=== PATIENT | male | born 1960 | race Caucasian/White ===

== ENCOUNTER → 2016-12-08 | Outpatient (CLI) | payer OTHER ==
[~2016-12-08] MED LIST: ASPIR 8181 MG PO; D-AMPHETAMINE SALT PO; EFFEXOR75 MG PO; FLEXERIL10 MG PO; NITROFURANTOIN100 MG PO; PERCOCET 5/31 TABLET PO; RELAFEN750 MG PO
== END | disposition home or self-care (01) ==
LOC: CDC 10:08
DX: Z01.810 Encounter for preprocedural cardiovascular examination (principal); K40.90 Unilateral inguinal hernia, without obstruction or gangrene, not specified as recurrent
CPT/HCPCS: 93000

== ENCOUNTER 2016-12-13 05:26 | Day surgery (SDC) | payer OTHER ==
[~2016-12-13] VITALS: Ht 175.3 cm; Wt 81.6 kg
[~2016-12-13 05:26] MED LIST changes: -PERCOCET 5/31 TABLET PO
[2016-12-13] MEDS ORDERED: PERCOCET 5/31 TABLET PO (08:29)
[2016-12-13 09:27] VITALS: BP 131/88
[2016-12-13 10:27] VITALS: BP 127/87
== END 2016-12-13 10:32 | disposition home or self-care (01) ==
LOC: SDC
PROC: 0YU60JZ Supplement Left Inguinal Region with Synthetic Substitute, Open Approach (ICD-10-PCS; principal; 2016-12-13)
DX: K40.90 Unilateral inguinal hernia, without obstruction or gangrene, not specified as recurrent (principal); G47.33 Obstructive sleep apnea (adult) (pediatric); Z88.0 Allergy status to penicillin; Z88.8 Allergy status to other drugs, medicaments and biological substances
CPT/HCPCS: C1781; J1885; J2405; J3010; J3370

== ENCOUNTER → 2018-02-20 | Outpatient (CLI) | payer OTHER ==
[~2018-02-20] MED LIST changes: +PERCOCET 5/31 TABLET PO
== END | disposition home or self-care (01) ==
LOC: RAD 09:26
DX: Z02.71 Encounter for disability determination (principal)
CPT/HCPCS: 72100; 73560